=== PATIENT | female | born 1965 | race Caucasian/White ===

== ENCOUNTER 2018-05-25 02:20 | Inpatient (IN) | payer BC ==
[~2018-05-25] VITALS: Ht 165.1 cm; Wt 55.8 kg
[~2018-05-25 02:20] MED LIST: KETO10TA2 PO
[2018-05-25] MEDS ORDERED: CefTRIAXone 2gm/D5W 50ml 50 ML IV ONE (02:55)
[2018-05-25] MEDS ORDERED: ondansetron/PF 4mg/2ml inj IV ONE ×2 (02:55→15:00)
[2018-05-25] MEDS ORDERED: normal saline 1000ML IV soln IV ONE (02:55)
--- NOTE | 2018-05-25 03:13 | NUR ---
AYDIN ALBERT, AT BEDSIDE. PIV IN PLACE, LABS DRAWN, BCX X2 DRAWN. ACCUCHECK [id number]
[2018-05-25] MEDS ORDERED: acetaminophen 1,000mg/100ml IV 100 ML IV ONE (03:15)
[2018-05-25 03:32] LABS: BASOPHILS # (AUTO) 0.2 X10'3 (0-0.2); BASOPHILS % (AUTO) 1.2 % (0-1); EOSINOPHILS % (AUTO) 0.1 % (0-6); HEMATOCRIT 53.4 % (35.0-45.0); HEMOGLOBIN 17.1 g/dl (12.0-16.0); LYMPHOCYTES % (AUTO) 6.6 % (21-51); MEAN CORPUSCULAR HEMOGLOBIN 27.4 PG (27.0-31.0); MEAN CORPUSCULAR VOLUME 85.7 FL (78-98); MEAN PLATELET VOLUME 8.6 FL (7.4-10.4); MONOCYTES # (AUTO) 0.4 X10'3 (0-0.9); MONOCYTES % (AUTO) 2.6 % (2-12); NEUTROPHILS % (AUTO) 89.5 % (42-75); PLATELET COUNT 326 X10'3 (140-440); RED BLOOD COUNT 6.23 X10'6 (4.20-5.60); RED CELL DISTRIBUTION WIDTH 13.6 % (11.5-14.5); WHITE BLOOD COUNT 15.6 X10'3 (4.5-11.0)
[2018-05-25 03:35] LABS: ABG OXYGEN SATURATION 96.1 % (95-98); ABG PH (T) 6.998 (7.350-7.450); ABG PO2 (T) 101.9 mmHg (83-108); FCOHb 0.4 % (0.5-1.5); FMetHb 0.3 % (0.3-1.12); FO2Hb 95.4 % (94-100); TOTAL HEMOGLOBIN 14.8 G/dl (12.0-16.0)
[2018-05-25 03:40] LABS: ABG BASE EXCESS -27.4 mmol/L (-2.0-3.0); ABG HCO3 2.8 mmol/L (22.0-26.0); ABG OXYGEN SATURATION 96.6 % (95-98); ABG PCO2 (T) 12.6 mmHg (32.0-45.0); ABG PH (T) 6.964 (7.350-7.450); ABG PO2 (T) 106.7 mmHg (83-108); FCOHb 0.6 % (0.5-1.5); FMetHb 0.3 % (0.3-1.12); FO2Hb 95.7 % (94-100); TOTAL HEMOGLOBIN 14.7 G/dl (12.0-16.0)
[2018-05-25 03:45] LABS: ALANINE AMINOTRANSFERASE 36 U/L (12-78); ALBUMIN/GLOBULIN RATIO 0.7 (1.1-1.5); ALKALINE PHOSPHATASE 143 IU/L (46-116); ASPARTATE AMINO TRANSFERASE 33 U/L (10-37); BILIRUBIN,TOTAL 0.4 MG/DL (0.1-1.0); BLOOD UREA NITROGEN 32 MG/DL (7-18); BUN/CREATININE RATIO 22.7 (6.6-38.0); CALCIUM 9.1 MG/DL (8.5-10.1); CHLORIDE 99 MMOL/L (99-107); CREATININE 1.41 MG/DL (0.40-0.90); GLUCOSE 319 MG/DL (70-104); MAGNESIUM 2.3 MG/DL (1.5-2.4); POTASSIUM 5.3 MMOL/L (3.5-5.1); SODIUM 137 MMOL/L (135-145); TOTAL PROTEIN 9.5 G/DL (6.4-8.2); eGFR 39 ML/MIN
[2018-05-25] MEDS ORDERED: sodium bicarbonate (0.9mEq/ml) 44.6 mEq/50ml syringe IV ONE (03:45)
[2018-05-25] MEDS ORDERED: sodium bicarbonate (8.4%) inj. 100 MEQ in dextrose 5%-water 900 ML IV ONE (03:46)
[2018-05-25] MEDS ORDERED: insulin regular, human 100 UNIT in normal saline 100ml IV soln 100 ML IV PRN ×2 (03:50)
[2018-05-25 03:54] LABS: INR 1.1 INR; PARTIAL THROMBOPLASTIN TIME 42 SECONDS (22-32); PROTHROMBIN TIME 10.8 SECONDS (9.0-12.0)
[2018-05-25 03:54] LABS: URINE HCG NEGATIVE (NEG)
[2018-05-25 03:55] LABS: ANION GAP 33 (8-16)
[2018-05-25] MEDS: sodium bicarbonate (8.4%) 1 mEq/ml syringe IV ONE ×2 (03:55→04:38)
--- NOTE | 2018-05-25 03:55 | NUR ---
dr honeycutt talking with pt and her , he reports she is ve3ry acidodic and will need to be admitted and will need admission to icu. md request 2nd piv.
[2018-05-25 03:57] LABS: CLARITY,URINE SLIGHTLY CLOUDY (Clear); COLOR,URINE YELLOW (Yellow); GLUCOSE, URINE >=1000 mg/dl (Neg); KETONES,URINE >=80 mg/dl (Neg); LEUKOCYTE ESTERASE ,URINE NEGATIVE (Neg); NITRITES, URINE NEGATIVE (Neg); OCCULT BLOOD,URINE MODERATE (Neg); PROTEIN,URINE 100 mg/dl (Neg); UROBILINOGEN,URINE 0.2 E.U/dL (0.2-1.0)
[2018-05-25 03:57] LABS: TOTAL CARBON DIOXIDE < 5 MMOL/L (24-32)
[2018-05-25 03:58] LABS: UA COLLECTION TYPE STRAIGHT CATH
[2018-05-25 04:17] LABS: AMORPHOUS URATES 2+; BACTERIA,URINE NONE SEEN /HPF (Neg); MUCUS STRANDS NONE SEEN /LPF (Neg); SQUAMOUS EPITHELIAL CELL,UR NONE SEEN /LPF (FEW); WBC,URINE 0-4 /HPF (0-4)
--- NOTE | 2018-05-25 04:21 | NUR ---
ATTEMPT MAD TO PLACE A 2ND PIV AND UNSUCCESSFUL. DR. SALVADOR TO PLACE CENTRAL LINE.
--- NOTE | 2018-05-25 04:43 | NUR ---
DR. SALVADOR AT BEDSIDE TO PLACE CENTRAL LINE. HR [address] ST, OTHERWISE VSS. DENIES ANY PAIN . RR 22. REMAINS AT BEDSIDE.
--- NOTE | 2018-05-25 04:45 | NUR ---
PER DR SALVADOR , HOLD BICAR IV PUSH AND JUST START THE BICARB GTT.
[2018-05-25 04:57] LABS: TOTAL CELLS COUNTED 100
--- NOTE | 2018-05-25 05:00 | NUR ---
yolis jamison, at bedside for admission to icu.
[2018-05-25 05:03] LABS: PLATELET ESTIMATE NORMAL
[2018-05-25] MEDS ORDERED: sodium bicarbonate (8.4%) inj. 100 MEQ in dextrose 5% water 500ml 500 ML IV PRN (05:39)
[2018-05-25] MEDS: insulin regular, DKA only 100 UNIT in normal saline 100ml IV soln 99 ML IV SCH ×8 (05:39→12:14)
[2018-05-25] MEDS ORDERED: sodium bicarbonate (8.4%) inj. 50 MEQ in dextrose 5% water 500ml 250 ML IV PRN (05:39)
[2018-05-25] MEDS ORDERED: sodium phosphate inj. 30 MMOL in dextrose 5%-water 250 ML IV PRN (05:40)
[2018-05-25] MEDS ORDERED: Neutra Phos packet PO PRN (05:40)
[2018-05-25] MEDS ORDERED: magnesium hydroxide 30ml (MOM) UD suspension PO PRN (05:40)
[2018-05-25] MEDS ORDERED: HYDROcodone/acetaminophen 5mg/325mg tablet PO PRN (05:40)
[2018-05-25] MEDS ORDERED: sodium phosphate inj. 15 MMOL in dextrose 5%-water 150 ML IV PRN (05:40)
[2018-05-25] MEDS ORDERED: potassium Cl 20 mEq SR tablet PO PRN ×2 (05:40)
[2018-05-25] MEDS ORDERED: acetaminophen 650mg rectal suppository RC PRN (05:40)
[2018-05-25] MEDS ORDERED: potassium Cl 40MEQ/250ML bag 250 ML IV PRN ×2 (05:40)
[2018-05-25] MEDS ORDERED: HYDROcodone/acetaminophen 10/325mg tab PO PRN (05:40)
[2018-05-25] MEDS ORDERED: HYDROmorphone inj. 0.5 MG/0.5 ML DISP.SYRIN IV PRN (05:40)
[2018-05-25] MEDS ORDERED: acetaminophen 325mg tablet PO PRN ×3 (05:40)
[2018-05-25] MEDS ORDERED: oseltamivir phos 75mg capsule PO ONE (06:00)
[2018-05-25] MEDS ORDERED: LEVO75TA PO (06:35)
[2018-05-25] MEDS ORDERED: GLIM4TAB79 PO (06:35)
[2018-05-25] MEDS ORDERED: CANA1TAB6 (06:36)
[2018-05-25] MEDS ORDERED: INSU100I29 (06:38)
--- NOTE | 2018-05-25 06:40 | NUR ---
med rec completed. yolis jamison, updated and will hold all but the Hunch[place].
[2018-05-25] MEDS: docusate sod 100mg capsule PO SCH ×2 (06:58→20:00)
[2018-05-25] MEDS ORDERED: insulin regular, human 10 units/0.1 ml syringe IV ONE ×2 (07:00→07:50)
[2018-05-25] MEDS: CefTRIAXone 2gm/D5W 50ml 50 ML IV SCH (07:02)
[2018-05-25] MEDS: levoTHYROXINE 125mcg tablet PO SCH (07:06)
[2018-05-25 07:08] LABS: TROPONIN I < 0.04 NG/ML (0.0-0.05)
[2018-05-25] MEDS: famotidine/PF 10 mg/ml inj IV SCH ×2 (07:09→20:12)
[2018-05-25] MEDS: normal saline 1000ml 1,000 ML IV SCH ×5 (07:10→22:47)
[2018-05-25 07:22] LABS: ALANINE AMINOTRANSFERASE 24 U/L (12-78); ALBUMIN 2.8 G/DL (3.4-5.0); ALBUMIN/GLOBULIN RATIO 0.7 (1.1-1.5); ALKALINE PHOSPHATASE 100 IU/L (46-116); ANION GAP 29 (8-16); ASPARTATE AMINO TRANSFERASE 25 U/L (10-37); BILIRUBIN,TOTAL 0.3 MG/DL (0.1-1.0); BLOOD UREA NITROGEN 28 MG/DL (7-18); BUN/CREATININE RATIO 24.8 (6.6-38.0); CALCIUM 6.9 MG/DL (8.5-10.1); CHLORIDE 104 MMOL/L (99-107); CREATININE 1.13 MG/DL (0.40-0.90); GLUCOSE 448 MG/DL (70-104); PHOSPHORUS 3.6 MG/DL (2.3-4.5); POTASSIUM 4.4 MMOL/L (3.5-5.1); SODIUM 139 MMOL/L (135-145); eGFR 50 ML/MIN
[2018-05-25 07:25] LABS: TOTAL CARBON DIOXIDE 5.8 MMOL/L (24-32)
[2018-05-25] MEDS ORDERED: heparin, porcine 5000 units/ml vial SQ SCH (08:00)
[2018-05-25] MEDS ORDERED: acetaminophen 1,000mg/100ml IV 100 ML IV SCH (08:00)
[2018-05-25] MEDS: K, MAG and/or Phos replacement - Verify level? MC SCH (08:03)
[2018-05-25 10:35] LABS: ALANINE AMINOTRANSFERASE 24 U/L (12-78); ALBUMIN 2.5 G/DL (3.4-5.0); ALBUMIN/GLOBULIN RATIO 0.6 (1.1-1.5); ALKALINE PHOSPHATASE 82 IU/L (46-116); ANION GAP 26 (8-16); ASPARTATE AMINO TRANSFERASE 21 U/L (10-37); BILIRUBIN,TOTAL 0.2 MG/DL (0.1-1.0); BLOOD UREA NITROGEN 22 MG/DL (7-18); BUN/CREATININE RATIO 21.2 (6.6-38.0); CALCIUM 7.1 MG/DL (8.5-10.1); CHLORIDE 110 MMOL/L (99-107); CREATININE 1.04 MG/DL (0.40-0.90); GLUCOSE 204 MG/DL (70-104); MAGNESIUM 1.5 MG/DL (1.5-2.4); PHOSPHORUS 1.7 MG/DL (2.3-4.5); POTASSIUM 3.1 MMOL/L (3.5-5.1); SODIUM 144 MMOL/L (135-145); TOTAL PROTEIN 6.4 G/DL (6.4-8.2); eGFR 55 ML/MIN
[2018-05-25 10:39] LABS: TOTAL CARBON DIOXIDE 8.2 MMOL/L (24-32)
[2018-05-25] MEDS: potassium CL 20mEq in D5-1/2NS 1,000 ML IV PRN ×2 (11:04→17:30)
[2018-05-25] MEDS: ondansetron/PF 4mg/2ml inj IV PRN (13:13)
[2018-05-25 14:04] LABS: ALANINE AMINOTRANSFERASE 23 U/L (12-78); ALBUMIN 2.4 G/DL (3.4-5.0); ALBUMIN/GLOBULIN RATIO 0.7 (1.1-1.5); ALKALINE PHOSPHATASE 75 IU/L (46-116); ANION GAP 15 (8-16); ASPARTATE AMINO TRANSFERASE 19 U/L (10-37); BILIRUBIN,TOTAL 0.2 MG/DL (0.1-1.0); BLOOD UREA NITROGEN 19 MG/DL (7-18); BUN/CREATININE RATIO 18.4 (6.6-38.0); CALCIUM 7.1 MG/DL (8.5-10.1); CHLORIDE 110 MMOL/L (99-107); CREATININE 1.03 MG/DL (0.40-0.90); GLUCOSE 233 MG/DL (70-104); MAGNESIUM 1.4 MG/DL (1.5-2.4); PHOSPHORUS 1.7 MG/DL (2.3-4.5); POTASSIUM 3.8 MMOL/L (3.5-5.1); SODIUM 141 MMOL/L (135-145); eGFR 56 ML/MIN
[2018-05-25 16:52] VITALS: BP 126/63
--- NOTE | 2018-05-25 18:40 | NUR ---
Problems reprioritized. Patient report given, questions answered & plan of care reviewed with Trevor ARNOLD.
--- NOTE | 2018-05-25 18:41 | NUR ---
Patient in room ICU 2046. I have received report from CATALINA Yun and had the opportunity to ask questions and assume patient care.
[2018-05-25 19:00] VITALS: BP 123/66
[2018-05-25 20:00] VITALS: BP 121/65
[2018-05-25] MEDS: magnesium Cl slow-release 64mg tablet PO SCH (20:11)
[2018-05-25 20:12] LABS: ALANINE AMINOTRANSFERASE 23 U/L (12-78); ALBUMIN 2.5 G/DL (3.4-5.0); ALBUMIN/GLOBULIN RATIO 0.6 (1.1-1.5); ALKALINE PHOSPHATASE 80 IU/L (46-116); ANION GAP 12 (8-16); ASPARTATE AMINO TRANSFERASE 23 U/L (10-37); BILIRUBIN,TOTAL 0.2 MG/DL (0.1-1.0); BLOOD UREA NITROGEN 17 MG/DL (7-18); BUN/CREATININE RATIO 17.9 (6.6-38.0); CALCIUM 7.8 MG/DL (8.5-10.1); CHLORIDE 112 MMOL/L (99-107); CREATININE 0.95 MG/DL (0.40-0.90); GLUCOSE 166 MG/DL (70-104); MAGNESIUM 1.5 MG/DL (1.5-2.4); PHOSPHORUS 1.9 MG/DL (2.3-4.5); POTASSIUM 4.1 MMOL/L (3.5-5.1); SODIUM 143 MMOL/L (135-145); TOTAL CARBON DIOXIDE 18.8 MMOL/L (24-32); TOTAL PROTEIN 6.4 G/DL (6.4-8.2); eGFR 61 ML/MIN
[2018-05-25] MEDS: heparin, porcine 5000 units/ml vial SQ SCH (20:14)
[2018-05-25] MEDS: oseltamivir 30mg capsule PO SCH (20:32)
--- NOTE | 2018-05-25 20:45 | NUR ---
Talked to Meg Watts NP regarding DKA orders. Patients blood sugars below 200s, no nausea/vomiting, vitals stable. Labs reflect DKA to be almost resolved. Patient tolerated 25% of dinner tray. May ordered administer Lantus at 2100 (patient refused 12 units, so May approved giving 6 units), stop insulin drip 2 hours after giving lantus, and finish running D5 1/2NS w/ 20K till midnight but decrease rate to 100ml/hr.
[2018-05-25] MEDS: insulin glargine (Lantus) pen - multi-dose SQ SCH (20:55)
[2018-05-25 21:00] VITALS: BP 115/68
[2018-05-25 22:00] VITALS: BP 108/76
[2018-05-25 23:00] VITALS: BP 113/69
[2018-05-26] VITALS (18 sets, daily range): BP systolic 114–145; BP diastolic 61–83
[2018-05-26 00:44] LABS: ALANINE AMINOTRANSFERASE 23 U/L (12-78); ALBUMIN 2.4 G/DL (3.4-5.0); ALBUMIN/GLOBULIN RATIO 0.6 (1.1-1.5); ALKALINE PHOSPHATASE 77 IU/L (46-116); ANION GAP 13 (8-16); ASPARTATE AMINO TRANSFERASE 22 U/L (10-37); BILIRUBIN,TOTAL 0.2 MG/DL (0.1-1.0); BLOOD UREA NITROGEN 14 MG/DL (7-18); BUN/CREATININE RATIO 16.7 (6.6-38.0); CALCIUM 8.1 MG/DL (8.5-10.1); CHLORIDE 111 MMOL/L (99-107); CREATININE 0.84 MG/DL (0.40-0.90); GLUCOSE 136 MG/DL (70-104); MAGNESIUM 1.5 MG/DL (1.5-2.4); PHOSPHORUS 1.6 MG/DL (2.3-4.5); POTASSIUM 3.8 MMOL/L (3.5-5.1); SODIUM 141 MMOL/L (135-145); TOTAL CARBON DIOXIDE 17.2 MMOL/L (24-32); TOTAL PROTEIN 6.3 G/DL (6.4-8.2); eGFR 70 ML/MIN
--- NOTE | 2018-05-26 02:00 | NUR ---
Called Meg Watts and stated that CO2 has decreased to 17.2, but patients blood sugars continue decreasing every hour, currently 86. Patient asymptomatic, no nausea/vomiting. May stated feed patient if tolerated. She also ordered advance diet at tolerated to CC diet, discontinue insulin drip, and start patient on standard hyperglycemia order set. Will continue to monitor blood sugars hourly.
[2018-05-26] MEDS: normal saline 1000ml 1,000 ML IV SCH ×3 (02:47→10:47)
[2018-05-26] MEDS ORDERED: MESSAGE TO PHARMACY PO ONE (04:40)
[2018-05-26] MEDS ORDERED: glucagon, human recombinant 1mg kit SUBCUT PRN (04:40)
[2018-05-26] MEDS ORDERED: dextrose 50%-water 50ml dispensing syringe IV PRN ×2 (04:40)
[2018-05-26] MEDS ORDERED: dextrose ORAL solution 15 GM/59 ML bottle PO PRN ×2 (04:40)
[2018-05-26 05:17] LABS: PARTIAL THROMBOPLASTIN TIME 38 SECONDS (22-32); PROTHROMBIN TIME 10.1 SECONDS (9.0-12.0)
[2018-05-26 05:20] LABS: ALANINE AMINOTRANSFERASE 21 U/L (12-78); ALBUMIN 2.4 G/DL (3.4-5.0); ALBUMIN/GLOBULIN RATIO 0.6 (1.1-1.5); ALKALINE PHOSPHATASE 74 IU/L (46-116); ANION GAP 11 (8-16); ASPARTATE AMINO TRANSFERASE 22 U/L (10-37); BILIRUBIN,TOTAL 0.2 MG/DL (0.1-1.0); BLOOD UREA NITROGEN 14 MG/DL (7-18); BUN/CREATININE RATIO 17.5 (6.6-38.0); CALCIUM 8.1 MG/DL (8.5-10.1); CHLORIDE 113 MMOL/L (99-107); GLUCOSE 106 MG/DL (70-104); MAGNESIUM 1.6 MG/DL (1.5-2.4); POTASSIUM 3.9 MMOL/L (3.5-5.1); SODIUM 143 MMOL/L (135-145); TOTAL CARBON DIOXIDE 18.8 MMOL/L (24-32); TOTAL PROTEIN 6.2 G/DL (6.4-8.2); eGFR 74 ML/MIN
[2018-05-26 05:31] LABS: BASOPHILS % (AUTO) 0.2 % (0-1); EOSINOPHILS % (AUTO) 0.2 % (0-6); HEMATOCRIT 41.6 % (35.0-45.0); HEMOGLOBIN 13.4 g/dl (12.0-16.0); MEAN CORPUSCULAR HEMOGLOBIN 27.1 PG (27.0-31.0); MEAN CORPUSCULAR HGB CONC 32.3 % (33.0-36.5); MEAN CORPUSCULAR VOLUME 83.7 FL (78-98); MEAN PLATELET VOLUME 7.9 FL (7.4-10.4); MONOCYTES # (AUTO) 0.4 X10'3 (0-0.9); MONOCYTES % (AUTO) 6.1 % (2-12); NEUTROPHILS # (AUTO) 5.9 X10'3 (1.8-7.7); NEUTROPHILS % (AUTO) 79.5 % (42-75); PLATELET COUNT 197 X10'3 (140-440); RED BLOOD COUNT 4.97 X10'6 (4.20-5.60); RED CELL DISTRIBUTION WIDTH 13.6 % (11.5-14.5); WHITE BLOOD COUNT 7.3 X10'3 (4.5-11.0)
[2018-05-26 06:05] LABS: PLATELET ESTIMATE NORMAL; TOTAL CELLS COUNTED 100
--- NOTE | 2018-05-26 06:39 | NUR ---
Problems reprioritized. Patient report given, questions answered & plan of care reviewed with CATALINA Estes.
[2018-05-26] MEDS: ondansetron/PF 4mg/2ml inj IV PRN (06:43)
--- NOTE | 2018-05-26 06:51 | NUR ---
Patient in room ICU 2046. I have received report from CATALINA Murray and had the opportunity to ask questions and assume patient care.
[2018-05-26] MEDS: levoTHYROXINE 125mcg tablet PO SCH (07:04)
[2018-05-26] MEDS: docusate sod 100mg capsule PO SCH ×2 (08:00→19:09)
[2018-05-26] MEDS: K, MAG and/or Phos replacement - Verify level? MC SCH (08:00)
[2018-05-26] MEDS: magnesium Cl slow-release 64mg tablet PO SCH ×2 (08:43→19:08)
[2018-05-26] MEDS: oseltamivir 30mg capsule PO SCH ×2 (08:43→19:08)
[2018-05-26] MEDS: heparin, porcine 5000 units/ml vial SQ SCH ×2 (08:44→19:11)
[2018-05-26] MEDS: famotidine/PF 10 mg/ml inj IV SCH (08:44)
[2018-05-26] MEDS: CefTRIAXone 2gm/D5W 50ml 50 ML IV SCH (09:21)
[2018-05-26] MEDS: insulin Lispro (HumaLOG) vial - multi-dose SQ SCH ×3 (09:29→19:07)
[2018-05-26 14:17] LABS: HEMOGLOBIN A1C 9.6 % (4.5-6.2)
--- NOTE | 2018-05-26 14:45 | NUR ---
Initial: Per MD note pt with T2DM but is being treated as a type I with ketoacidosis, which may be drug-induced and due to recently started Invokana. Pt also admitted with influenza A. Pt with no documented A1c from current or previous visits, d/w RN, A1c pending. Pt and SO seen at bedside states patient previously was seeing an [employer] for DM management however they are now seeking out to get an nursery teacher. Pt states she takes her DM meds per rx and checks her BG levels 4-5 times a day with resulting numbers in the 200-300s and that she follows a no sugar high protein diet in order to manage BG levels. Encouraged pt to share that information with her endo once she gets one to make sure that her DM rx is appropriate for her. Pt given written and verbal DM education with referral to outpatient DM class and RD contact information. All of patient's and SO questions answered at this time. Pt denies any food allergies, difficulties in chewing/swallowing, or constipation/diarrhea. Pt agreeable to double protein TID and requests sugar free items only on trays, d/w dietary. Current documented wt likely inaccurate d/t wt doubling in one day, updated BMI using admit wt taken from [facility] 23.7. Will continue to follow. Recommendations: 1) Continue with CHO controlled diet 2) Double protein TID 3) Wt per rx Addendum: 05/26/18 at [address] Amended: Links added.
[2018-05-26] MEDS ORDERED: benzonatate 100mg capsule PO PRN (15:35)
--- NOTE | 2018-05-26 16:32 | NUR ---
Transfered up to room 3016. Report called to Ashlie.
--- NOTE | 2018-05-26 18:11 | NUR ---
Problems reprioritized. Patient report given, questions answered & plan of care reviewed with COOKIE ARNOLD.
--- NOTE | 2018-05-26 18:14 | NUR ---
AGREE WITH PHYSICAL ASSESSMENT DONE IN ICU EXCEPT FOR CHANGES CHARTED Addendum: 05/26/18 at 1814 by Amisha Franz RN Amended: Links added.
[2018-05-26] MEDS: famotidine 20mg tablet PO SCH (19:08)
[2018-05-26] MEDS: insulin glargine (Lantus) pen - multi-dose SQ SCH (22:06)
--- NOTE | 2018-05-27 02:31 | NUR ---
Patient requested blood sugar to be checked due to "not feeling well", blood sugar was 209. Patient requested something to eat stated that she is "starving". Educated patient on appropriate food, cheese being a good option. Patient declined stated that she needs something "to soak up the acid" in her stomach, and asked if she could have khoi crackers and milk. Educated patient that it would be better to have something that is higher in protein and lower in carbohydrates. Patient stated that she would "settle" for a turkey sandwich and milk. Patient was given this at this time. Patient also complaining that she has been unable to sleep all night due to coughing. Offered patient testammie pertereza at this time. Patient declined stating that she didn't want to take anything that would "raise her blood pressure" educated patient that the medication would not affect her blood pressure and that her blood pressures have been good all night, SBP 125-135. Patient still declined the medication. Will continue to monitor patient Addendum: 05/27/18 at 0242 by Rg Gamble RN Spoke landen Watts regarding patient's elevated BS, no coverage at this time
[2018-05-27 03:00] VITALS: BP 146/70
[2018-05-27 06:00] VITALS: BP 104/56
--- NOTE | 2018-05-27 06:29 | NUR ---
Problems reprioritized. Patient report given, questions answered & plan of care reviewed with Charlotte ARNOLD.
[2018-05-27 06:51] LABS: ALANINE AMINOTRANSFERASE 21 U/L (12-78); ALBUMIN 2.5 G/DL (3.4-5.0); ALBUMIN/GLOBULIN RATIO 0.6 (1.1-1.5); ALKALINE PHOSPHATASE 84 IU/L (46-116); ANION GAP 20 (8-16); ASPARTATE AMINO TRANSFERASE 20 U/L (10-37); BILIRUBIN,TOTAL 0.6 MG/DL (0.1-1.0); BLOOD UREA NITROGEN 16 MG/DL (7-18); BUN/CREATININE RATIO 21.1 (6.6-38.0); CALCIUM 8.4 MG/DL (8.5-10.1); CHLORIDE 105 MMOL/L (99-107); CREATININE 0.76 MG/DL (0.40-0.90); GLUCOSE 244 MG/DL (70-104); MAGNESIUM 1.8 MG/DL (1.5-2.4); PHOSPHORUS 2.3 MG/DL (2.3-4.5); POTASSIUM 3.9 MMOL/L (3.5-5.1); SODIUM 141 MMOL/L (135-145); TOTAL CARBON DIOXIDE 16.5 MMOL/L (24-32); TOTAL PROTEIN 6.8 G/DL (6.4-8.2); eGFR 79 ML/MIN
[2018-05-27 07:05] LABS: BASOPHILS % (AUTO) 0.4 % (0-1); EOSINOPHILS % (AUTO) 0.5 % (0-6); HEMATOCRIT 40.2 % (35.0-45.0); HEMOGLOBIN 13.3 g/dl (12.0-16.0); LYMPHOCYTES # (AUTO) 1.2 X10'3 (1.1-4.8); LYMPHOCYTES % (AUTO) 16.3 % (21-51); MEAN CORPUSCULAR HEMOGLOBIN 27.3 PG (27.0-31.0); MEAN CORPUSCULAR VOLUME 82.9 FL (78-98); MEAN PLATELET VOLUME 7.8 FL (7.4-10.4); MONOCYTES # (AUTO) 0.4 X10'3 (0-0.9); MONOCYTES % (AUTO) 5.1 % (2-12); NEUTROPHILS # (AUTO) 5.8 X10'3 (1.8-7.7); NEUTROPHILS % (AUTO) 77.7 % (42-75); PLATELET COUNT 188 X10'3 (140-440); RED BLOOD COUNT 4.85 X10'6 (4.20-5.60); RED CELL DISTRIBUTION WIDTH 13.4 % (11.5-14.5); WHITE BLOOD COUNT 7.4 X10'3 (4.5-11.0)
[2018-05-27 07:12] LABS: INR 0.9 INR; PARTIAL THROMBOPLASTIN TIME 35 SECONDS (22-32); PROTHROMBIN TIME 9.6 SECONDS (9.0-12.0)
[2018-05-27] MEDS: famotidine 20mg tablet PO SCH ×2 (07:16→19:43)
[2018-05-27] MEDS: levoTHYROXINE 125mcg tablet PO SCH (07:16)
[2018-05-27] MEDS: oseltamivir 30mg capsule PO SCH ×2 (07:16→19:45)
[2018-05-27] MEDS: docusate sod 100mg capsule PO SCH ×2 (07:16→19:43)
[2018-05-27] MEDS: magnesium Cl slow-release 64mg tablet PO SCH ×2 (07:16→19:43)
[2018-05-27] MEDS: CefTRIAXone 2gm/D5W 50ml 50 ML IV SCH (07:16)
[2018-05-27] MEDS: heparin, porcine 5000 units/ml vial SQ SCH ×2 (07:20→19:43)
[2018-05-27] MEDS: K, MAG and/or Phos replacement - Verify level? MC SCH (08:00)
[2018-05-27] MEDS: insulin Lispro (HumaLOG) vial - multi-dose SQ SCH ×3 (08:20→19:42)
[2018-05-27 11:00] VITALS: BP 136/75
[2018-05-27 15:00] VITALS: BP 142/82
[2018-05-27 18:00] VITALS: BP 148/75
--- NOTE | 2018-05-27 18:34 | NUR ---
Problems reprioritized. Patient report given, questions answered & plan of care reviewed with Pratibha waters.
--- NOTE | 2018-05-27 21:00 | NUR ---
Pt Lantus dose according to protocol should be 12 units. Pt is skeptical and does not want to take such a large dose. Agreed on 8 units.
[2018-05-27] MEDS: insulin glargine (Lantus) pen - multi-dose SQ SCH (21:30)
[2018-05-27 22:49] VITALS: BP 149/91
--- NOTE | 2018-05-27 23:00 | NUR ---
Patient states she is coughing and requesting medications. in room states he wants her to take tessalon perles. Brought medication back to patient. She states she no longer wants. Advised to use call light if she changes her mind.
[2018-05-28 02:28] VITALS: BP 151/83
[2018-05-28 06:09] LABS: ALANINE AMINOTRANSFERASE 20 U/L (12-78); ALBUMIN 2.5 G/DL (3.4-5.0); ALBUMIN/GLOBULIN RATIO 0.6 (1.1-1.5); ALKALINE PHOSPHATASE 83 IU/L (46-116); ANION GAP 16 (8-16); ASPARTATE AMINO TRANSFERASE 16 U/L (10-37); BILIRUBIN,TOTAL 0.6 MG/DL (0.1-1.0); BLOOD UREA NITROGEN 17 MG/DL (7-18); BUN/CREATININE RATIO 27.4 (6.6-38.0); CALCIUM 8.4 MG/DL (8.5-10.1); CHLORIDE 107 MMOL/L (99-107); CREATININE 0.62 MG/DL (0.40-0.90); GLUCOSE 169 MG/DL (70-104); MAGNESIUM 1.9 MG/DL (1.5-2.4); PHOSPHORUS 2.9 MG/DL (2.3-4.5); POTASSIUM 3.6 MMOL/L (3.5-5.1); SODIUM 144 MMOL/L (135-145); TOTAL PROTEIN 6.9 G/DL (6.4-8.2); eGFR > 90 ML/MIN
[2018-05-28 06:14] LABS: BASOPHILS % (AUTO) 0.3 % (0-1); EOSINOPHILS # (AUTO) 0.1 X10'3 (0-0.9); EOSINOPHILS % (AUTO) 1.5 % (0-6); HEMATOCRIT 42.9 % (35.0-45.0); HEMOGLOBIN 13.6 g/dl (12.0-16.0); LYMPHOCYTES # (AUTO) 1.5 X10'3 (1.1-4.8); LYMPHOCYTES % (AUTO) 24.8 % (21-51); MEAN CORPUSCULAR HEMOGLOBIN 26.6 PG (27.0-31.0); MEAN CORPUSCULAR HGB CONC 31.8 % (33.0-36.5); MEAN CORPUSCULAR VOLUME 83.5 FL (78-98); MEAN PLATELET VOLUME 7.7 FL (7.4-10.4); MONOCYTES # (AUTO) 0.6 X10'3 (0-0.9); MONOCYTES % (AUTO) 9.4 % (2-12); NEUTROPHILS # (AUTO) 3.8 X10'3 (1.8-7.7); PLATELET COUNT 188 X10'3 (140-440); RED BLOOD COUNT 5.13 X10'6 (4.20-5.60); RED CELL DISTRIBUTION WIDTH 13.3 % (11.5-14.5)
[2018-05-28 06:17] LABS: INR 0.9 INR; PARTIAL THROMBOPLASTIN TIME 30 SECONDS (22-32); PROTHROMBIN TIME 9.6 SECONDS (9.0-12.0)
--- NOTE | 2018-05-28 06:35 | NUR ---
Problems reprioritized. Patient report given, questions answered & plan of care reviewed with CATALINA Kwong.
--- NOTE | 2018-05-28 06:43 | NUR ---
Patient in room PCU 3016. I have received report from Pratibha ARNOLD and had the opportunity to ask questions and assume patient care.
[2018-05-28 07:00] VITALS: BP 146/91
[2018-05-28] MEDS: oseltamivir 30mg capsule PO SCH (07:24)
[2018-05-28] MEDS: levoTHYROXINE 125mcg tablet PO SCH (07:25)
[2018-05-28] MEDS: CefTRIAXone 2gm/D5W 50ml 50 ML IV SCH (07:28)
[2018-05-28] MEDS: famotidine 20mg tablet PO SCH (07:33)
[2018-05-28] MEDS: magnesium Cl slow-release 64mg tablet PO SCH (07:33)
[2018-05-28] MEDS: docusate sod 100mg capsule PO SCH (07:33)
[2018-05-28] MEDS: heparin, porcine 5000 units/ml vial SQ SCH (07:35)
[2018-05-28] MEDS: insulin Lispro (HumaLOG) vial - multi-dose SQ SCH ×2 (08:07→13:55)
[2018-05-28] MEDS: K, MAG and/or Phos replacement - Verify level? MC SCH (08:08)
--- NOTE | 2018-05-28 09:20 | NUR ---
Offered patient a shower, refused. Offered patient a bedbath, refused. Patient states she will take a shower when she gets home.
--- NOTE | 2018-05-28 12:21 | NUR ---
Consultation w/CM, SS referral is not needed as CM will provide resources of local healthcare providers. SS referral closed.
[2018-05-28] MEDS ORDERED: INSU100V11 SQ (13:59)
[2018-05-28] MEDS ORDERED: GLIM4TAB79 PO (13:59)
[2018-05-28 14:35] VITALS: BP 146/83
[2018-05-28 15:15] VITALS: BP 153/86
--- NOTE | 2018-05-28 15:31 | NUR ---
Patient discharged with to home. VSS, A&O4. All education completed concerning medications. 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
[2018-05-28] MEDS ORDERED: lactobacillus rhamnosus 10,000 MMU CELLS/CAPSULE PO SCH (20:00)
== END 2018-05-28 15:40 | disposition home or self-care (01) | DRG 193 ==
LOC: ER 02:20 → ED HOLD 05:39 → ICU 2S 14:15 → PCU 3S 05-26 16:15
PROVIDERS: ADMIT Internal Medicine Critical Care Medicine; ATTEND Internal Medicine Critical Care Medicine
PROC: 05HM33Z Insertion of Infusion Device into Right Internal Jugular Vein, Percutaneous Approach (ICD-10-PCS; principal; 2018-05-25)
PROC: B543ZZA Ultrasonography of Right Jugular Veins, Guidance (ICD-10-PCS; 2018-05-25)
DX: J09.X2 Influenza due to identified novel influenza A virus with other respiratory manifestations (principal); E11.10 Type 2 diabetes mellitus with ketoacidosis without coma; E89.0 Postprocedural hypothyroidism; E66.9 Obesity, unspecified; R00.0 Tachycardia, unspecified; T38.3X5A Adverse effect of insulin and oral hypoglycemic [antidiabetic] drugs, initial encounter; Z79.4 Long term (current) use of insulin; Z79.890 Hormone replacement therapy; Z85.850 Personal history of malignant neoplasm of thyroid; Z87.442 Personal history of urinary calculi; Z68.20 Body mass index [BMI] 20.0-20.9, adult; Z79.899 Other long term (current) drug therapy; Y92.89 Other specified places as the place of occurrence of the external cause
CPT/HCPCS: 36415; 36556; 36600; 71045; 80053; 81001; 81025; 82803; 82948; 83036; 83605; 83735; 84100; 84145; 84443; 84484; 85018; 85025; 85610; 85730; 87040; 87070; 87502; 87503; 93005; 96365; 96367; 96368; 96375; 97110; 97116; 97162; 99291; G0378; J0131; J0696; J1644; J1815; J2405; J3480; J3490; J7030